=== PATIENT | female | born 1985 | race Caucasian/White ===

== ENCOUNTER 2020-12-27 22:14 | Emergency (ER) | payer OTHER, SELFPAY ==
--- NOTE | ~2020-12-27 | XR_ITS ---
XR chest 2V DATE: 12/27/2020 22:44 INDICATION: Fever, cough. Covid exposure. TECHNIQUE: PA and lateral views COMPARISON: 07/30/2014 CT pulmonary scan 08/03/2014 2 view chest FINDINGS: Mild cardiomegaly, stable since 08/03/2014 No hilar or mediastinal enlargement. No pleural effusion or pulmonary vascular congestion or pneumoth orax. There are mild patchy infiltrates and/atelectasis in both lower lung zones. Included skeletal structures are unremarkable.. IMPRESSION: Mild patchy infiltrate or atelectasis at the lung bases Reviewed, dictated and finalized at location A.
[2020-12-27 22:27] VITALS: BP 146/101; PULSE 126; RESP 18; TEMP 36.6; O2SAT 98
--- NOTE | 2020-12-27 22:31 | ECG_ITS ---
Measurements Intervals [place] Rate: 117 P: 11 KS: 153 QRS: 27 QRSD: 86 T: -18 QT: 341 QTc: 476 Interpretive Statements SINUS TACHYCARDIA VOLTAGE CRITERIA FOR LVH BORDERLINE ST-T WAVE ABNORMALITY- ANTEROLAT/INF LEADS ABNORMAL ECG Electronically Signed On 12-28-2020 6:31:56 CDT by Otoniel Flores D.O.
== END 2020-12-28 04:16 | disposition left against medical advice (07) ==
PROVIDERS: Emergency Provider Emergency Medicine; PCP Physician Assistant
DX: R51.9 Headache, unspecified (principal)
CPT/HCPCS: 71046; 93005; 99199

== ENCOUNTER 2023-09-18 02:05 | Day surgery (SDC) | payer OTHER, SELFPAY ==
--- NOTE | 2023-09-12 11:10 | PC.NURSE ---
Report to the Outpatient Waiting Room, entrance under the green pavilion located off [facility], at time _1200_ on date _[id number]_. Planned Procedure Time: _2pm_. Time changes happen often and if your time is changed the preop area will call you the afternoon before. - You and your visitor will be asked to self-screen and do not enter if you have any COVID symptoms. - A mask is optional within the hospital at this time. Patients may have clear liquids (water, carbonated beverages, clear teas, apple juice) until 3 hours prior to surgery with a maximum of 20 ounces. - No food from midnight until time of surgery Take the following medications with a SIP of water the morning of surgery: ___None DO NOT STOP ANY OF YOUR OTHER PRESCRIPTION MEDICATIONS PRIOR TO SURGERY ?EXCEPT THE FOLLOWING Medications to discontinue per physician ____None Date to take last dose Please no make-up, nail georgian, hairspray, perfume, deodorant, or body powder the day of surgery. No jewelry (including any body piercings) or valuables the day of surgery, leave them at home. Please take a shower or bath the night before, or the morning of, surgery with an antibacterial soap. Wear comfortable, loose fitting clothing. - Jewelry must be removed prior to entering the operating room. Rings and piercings that are not removed may be cut off. - The hospital will not accept responsibility for valuables. - Please leave all valuables, including medications, at home the day of surgery. If you are going home after surgery, a licensed local bulk driver must drive you home. - NO public transportation without another adult if you receive anesthesia. - We recommend that an adult stay with you for 24 hours following discharge. - We also recommend that you do not drive, make important decision, drink alcoholic beverages, or take any drugs that were not prescribed by your health care provider for at least 24 hours after your discharge time. Follow any additional instructions given to you from your surgeon. If you or anyone in your household have experienced Covid symptoms in the past week, please notify your surgeon or the nurse liaison at the phone number below for possible testing. Telephone instructions given to __Shelly____and asked if any additional questions and then verbalized understanding. Patient advised to call surgeon office or pre surgery nurse liaison [phone] if any additional questions.
[2023-09-18 11:59] VITALS: BP 140/97; PULSE 80; RESP 18; TEMP 36.1; O2SAT 100
[2023-09-18 12:14] VITALS: BMI 35.1
[2023-09-18] MEDS: LACTATED RINGERS 1,000 ML 30 ML IV CONT (12:30)
[2023-09-18] MEDS: ACETAMINOPHEN 500 MG TABLET 1000 MG PO (12:35)
[2023-09-18] MEDS: KETOROLAC 15 MG/ML VIAL (*BKC) IV PUSH (12:40)
--- NOTE | 2023-09-18 13:33 | WPDANESEPPF ---
Anes - Initial Pre Proc Eval Procedure: Operation Date: 09/18/23 14:00 Proposed Procedures p Diagnostic Laparoscopy - Leonel Boyd MD Date/Time: 09/18/23 13:33 Surgeon: Leonel Boyd MD Pre Op Diagnosis: Pelvic Pain Patient Data Age: 38 Gender: F Height: 1.68 m Weight: 98.7 kg Last Vital Signs Temp 96.9 F L 09/18/23 11:59 Pulse 80 09/18/23 11:59 Resp 18 09/18/23 11:59 BP 140/97 H 09/18/23 11:59 Pulse Ox 100 09/18/23 11:59 O2 Del Method Room Air 09/18/23 11:59 Allergies Allergy/AdvReac Type Severity Reaction Status Date / Time morphine AdvReac Intermediate Hives Verified 09/18/23 12:08 Home Medications Medication Instructions Recorded Confirmed Type No Home Medications 09/12/23 09/18/23 History Patient hx anesthesia problems: none Family hx anesthesia problems: none Results Review: All pre-operative results and documents have been reviewed as part of the pre-operative evaluation. [facility] Social History Social History Smoking status: Never smoker Living arrangements: with family Spiritual care concerns: No Anes - Eval Final PreProcedure Day of Procedure 09/18/23 13:33 Patient weight: obese Heart: regular rate and rhythm Lungs: clear to auscultation Airway: Mallampati scale class II Neurological: alert and oriented Last oral intake: >/= 8 hours ASA classification: II Emergent: no Anesthetic plan: proceed Anesthesia type and monitoring: general ETT and standard monitoring Results Review: All pre-operative results and documents have been reviewed as part of the pre-operative evaluation. Informed Consent: The patient's anesthetic plan and its attendant risks and benefits were discussed with the patient/family/POA. Questions were solicited and answers provided to the satisfaction of the patient/family/POA.
--- NOTE | 2023-09-18 14:41 | SUR.PREOP ---
1420 Pt made aware of surgery time delay. Warm blanket given, denies any other needs.
--- NOTE | 2023-09-18 15:33 | SUR.PREOP ---
PT INFORMED OF FURTHER SURGERY TIME DELAY
--- NOTE | 2023-09-18 20:08 | SUR.PREOP ---
1257 patient informed surgeon delayed and her procedure today is canceled and she will need to call the office to reschedule, understanding stated.
== END 2023-09-18 17:05 | disposition home or self-care (01) ==
PROVIDERS: Visit Provider Obstetrics & Gynecology
PROC: (CPT 49320; principal; 2023-09-18 14:00)
DX: R10.2 Pelvic and perineal pain (principal)
CPT/HCPCS: 99213; A9270; G0463; J1885; J7120

== ENCOUNTER 2023-09-24 02:31 | Day surgery (SDC) | payer OTHER, SELFPAY ==
[2023-09-20 16:02] VITALS: BMI 35.1
--- NOTE | 2023-09-20 16:06 | PC.NURSE ---
Report to the Outpatient Waiting Room, entrance under the green pavilion located off [facility], at time _0900_ on date _[id number]_. Planned Procedure Time: _1100_. Time changes happen often and if your time is changed the preop area will call you the afternoon before. - You and your visitor will be asked to self-screen and do not enter if you have any COVID symptoms. - A mask is optional within the hospital at this time. Patients may have clear liquids (water, carbonated beverages, clear teas, apple juice) until 3 hours prior to surgery with a maximum of 20 ounces. - No food from midnight until time of surgery Take the following medications with a SIP of water the morning of surgery: ____none DO NOT STOP ANY OF YOUR OTHER PRESCRIPTION MEDICATIONS PRIOR TO SURGERY ?EXCEPT THE FOLLOWING Medications to discontinue per physician none Date to take last dose Please no make-up, nail bruneian, hairspray, perfume, deodorant, or body powder the day of surgery. No jewelry (including any body piercings) or valuables the day of surgery, leave them at home. Please take a shower or bath the night before, or the morning of, surgery with an antibacterial soap. Wear comfortable, loose fitting clothing. - Jewelry must be removed prior to entering the operating room. Rings and piercings that are not removed may be cut off. - The hospital will not accept responsibility for valuables. - Please leave all valuables, including medications, at home the day of surgery. If you are going home after surgery, a licensed [place] driver must drive you home. - NO public transportation without another adult if you receive anesthesia. - We recommend that an adult stay with you for 24 hours following discharge. - We also recommend that you do not drive, make important decision, drink alcoholic beverages, or take any drugs that were not prescribed by your health care provider for at least 24 hours after your discharge time. Follow any additional instructions given to you from your surgeon. If you or anyone in your household have experienced Covid symptoms in the past week, please notify your surgeon or the nurse liaison at the phone number below for possible testing. Telephone instructions given to _Reginay__and asked if any additional questions and then verbalized understanding. Patient advised to call surgeon office or pre surgery nurse liaison [phone] if any additional questions.
[2023-09-24] VITALS (8 sets, daily range): BP systolic 115–147; BP diastolic 69–88; PULSE 76–113; RESP 12–18; TEMP 36.2–36.3; O2SAT 94–100
[2023-09-24] MEDS: ACETAMINOPHEN 500 MG TABLET 1000 MG PO (10:10)
[2023-09-24] MEDS: KETOROLAC 15 MG/ML VIAL (*BKC) IV PUSH (10:10)
--- NOTE | 2023-09-24 10:27 | PM.IMHP ---
H&P: HPI History of Present Illness Date/Time: 09/24/23 10:27 Chief Complaint: pelvic pain Narrative: 38-year-old female with pelvic pain and nonspecific pelvic mass. She is status post hysterectomy. We agreed to perform diagnostic laparoscopy. She understands procedure. Has been explained to her in detail. She understands risks. She understands injuries may occur that resulted hospitalization, more surgery, and severe illness. She understands risk of hemorrhage infection. She denies any nausea, vomiting, fever, chills. She denies any chest pain or shortness of breath. Review of Systems Review of Systems: All systems reviewed & are unremarkable except as noted in HPI and below Constitutional: Constitutional: Denies chills, Denies fatigue, Denies fever(s) and Denies weakness Eyes: Eyes: Denies blurry vision, Denies change in vision, Denies loss of peripheral vision, Denies loss of vision, Denies other visual disturbances and Denies eye pain ENT: Denies vertigo, Denies dizziness, Denies hearing loss, Denies mouth pain, Denies nasal obstruction, Denies neck mass and Denies neck pain Cardiovascular: Cardiovascular: Denies chest pain, Denies diaphoresis, Denies syncope, Denies leg edema and Denies dyspnea Respiratory: Respiratory: Denies chest congestion, Denies cough, Denies hemoptysis, Denies dyspnea and Denies wheezing Gastrointestinal: Gastrointestinal: Denies abdominal pain, Denies constipation, Denies diarrhea, Denies nausea and Denies vomiting Genitourinary: Genitourinary: Denies hematuria, Denies change in libido, Denies nocturia, Denies genital lesions, Denies flank pain and Denies urinary urgency Musculoskeletal: Musculoskeletal: Denies abnormal gait, Denies back pain, Denies myalgias, Denies arthralgias, Denies joint swelling, Denies muscle weakness and Denies neck pain Integumentary/Breasts: Skin/Breast: Denies swelling, Denies breast pain, Denies breast mass, Denies dry skin, Denies nipple discharge, Denies unusual bruising and Denies jaundice Neurologic: Denies Neuro-related abnormal movements, Denies Abnormal speech present, Denies abnormal gait, Denies behavioral changes, Denies confusion, Denies vertigo, Denies dizziness, Denies syncope, Denies loss of vision, Denies memory loss, Denies convulsions and Denies weakness Psychiatric: Psychiatric: Denies abnormal sleep pattern, Denies behavioral changes, Denies change in libido, Denies confusion, Denies depression, Denies anhedonia and Denies memory loss Endocrine: Endocrine: Reports no additional endocrine complaints, Denies change in libido and Denies fatigue Hematologic/Lymphatic: Hematologic/Lymphatic: Reports no additional hematologic/lymphatic complaints Allergic/Immunologic: Allergic/Immunologic: Reports no additional allergic/immunologic complaints and Denies wheezing PMFSH Social History Social History Smoking status: Never smoker Living arrangements: with family Spiritual care concerns: No Meds Home Medications and Allergies Home Medications Medication Instructions Recorded Confirmed Type No Home Medications 09/12/23 09/20/23 History Allergies Allergy/AdvReac Type Severity Reaction Status Date / Time morphine AdvReac Intermediate Hives Verified 09/20/23 16:03 Exam Const: General: cooperative, healthy appearing, comfortable and no acute distress Orientation/consciousness: oriented to person, oriented to place and oriented to time HENMT: Head: normal to inspection Ears: external ears normal Face/Nose/Sinus: Normal external nose present and normal facial exam Face and sinus: normal facial exam Eyes: General: appearance normal, both eyes and all related structures Neck: Neck: normal visual inspection, trachea midline and supple Resp: Auscultation: clear to auscultation bilaterally, no crackles, no rales, no rhonchi and no wheezes Cardio: Rate: regular rate Rhythm: regular rhythm Heart sounds: no click, no murmurs an
--- NOTE | 2023-09-24 10:30 | WPDHPUPDATE1 ---
History and Physical Update Update Date/Time: 09/24/23 10:30 History and Physical has been reviewed, including an updated exam of the patient. There are NO changes in the patient's condition. Risks, benefits, and alternatives have been discussed and questions answered. Patient agrees to proceed with procedure.
[2023-09-24] MEDS: LACTATED RINGERS 1,000 ML 30 ML IV CONT (10:31)
--- NOTE | 2023-09-24 10:45 | P.PNAN_ITS ---
Anes - Initial Pre Proc Eval Procedure: Operation Date: 09/24/23 11:30 Proposed Procedures p Diagnostic Laparoscopy - Cl Boyd MD Date/Time: 09/24/23 10:45 Surgeon: Cl Boyd MD Pre Op Diagnosis: pelvic pain Patient Data Age: 38 Gender: F Height: 1.68 m Weight: 95.5 kg Last Vital Signs Temp 97.1 F L 09/24/23 10:26 Pulse 76 09/24/23 10:26 Resp 14 09/24/23 10:26 BP 123/88 09/24/23 10:26 Pulse Ox 99 09/24/23 10:26 O2 Del Method Room Air 09/24/23 10:26 Allergies Allergy/AdvReac Type Severity Reaction Status Date / Time morphine AdvReac Intermediate Hives Verified 09/24/23 10:33 Home Medications Medication Instructions Recorded Confirmed Type No Home Medications 09/12/23 09/20/23 History Patient hx anesthesia problems: none Family hx anesthesia problems: none Results Review: All pre-operative results and documents have been reviewed as part of the pre- operative evaluation. PMFSH Social History Social History Smoking status: Never smoker Living arrangements: with family Spiritual care concerns: No Anes - Eval Final PreProcedure Day of Procedure 09/24/23 10:45 Patient weight: obese Heart: regular rate and rhythm Lungs: clear to auscultation Airway: Mallampati scale class II Neurological: alert and oriented Last oral intake: >/= 8 hours ASA classification: II Emergent: no Anesthetic plan: proceed Anesthesia type and monitoring: general ETT and standard monitoring Results Review: All pre-operative results and documents have been reviewed as part of the pre- operative evaluation. Informed Consent: The patient's anesthetic plan and its attendant risks and benefits were discussed with the patient/family/POA. Questions were solicited and answers provided to the satisfaction of the patient/family/POA.
--- NOTE | 2023-09-24 12:15 | W.PM.PROC2 ---
Procedure Note - Detailed Date of Procedure 09/24/23 Pre-op Diagnosis pelvic pain, Post-op Diagnosis Same ( pelvic adhesions) Procedure Performed Diagnostic laparoscopy, right oophorectomy Surgeon Cl Boyd MD Anesthesia General Indications Pelvic pain Findings pronounced vascularity of the right ovary, irregular contour were, adhesions around the ovary and throughout the pelvis. Densely scarred pelvic mesh. Absent left ovary. Absent uterus and fallopian tubes, densely scarred vaginal Description of Procedure The patient was taken to the operating room. She was prepped and draped in the dorsal lithotomy position after induction general anesthesia. A 5 mm incision was made with a scalpel on the abdominal skin in the left upper quadrant of the abdomen. A 5 mm trocar was inserted into the intra-abdominal cavity under direct visualization the scope. In the same fashion a 11 mm left lower quadrant trocar was inserted and a 5 mm infraumbilical trocar was inserted. Sharp and blunt dissection were used along with cautery to separate the ovary from the lateral right pelvic sidewall. The ureter was dissected down the right side. the ovaries placed in endobag and taken out the left lower quadrant trocar site The pelvis was irrigated. The pneumoperitoneum was reduced. The trocars were removed. Skin was closed with subcuticular 4 micro. The patient's incisions were covered with Dermabond. She was taken recovery room in stable condition. Sponge lap and needle counts were correct x2. Complications No immediate complications Condition Stable Disposition Same day
[2023-09-24] MEDS: fentaNYL CITRATE INJ (*CRX) 100 MCG/2 ML VIAL 25 MCG IV PUSH ×8 (12:25→12:56)
[2023-09-24] MEDS: ONDANSETRON INJ 4 MG/2 ML VIAL IV PUSH (12:34)
[2023-09-24] MEDS: oxyCODONE HCL (*CRX) 5 MG TAB IR PO (13:30)
== END 2023-09-24 14:18 | disposition home or self-care (01) ==
PROVIDERS: Visit Provider Obstetrics & Gynecology
PROC: (CPT 49320; principal; 2023-09-24 11:30)
DX: N83.01 Follicular cyst of right ovary (principal); N73.6 Female pelvic peritoneal adhesions (postinfective); Z90.710 Acquired absence of both cervix and uterus; E66.9 Obesity, unspecified; Z68.34 Body mass index [BMI] 34.0-34.9, adult
CPT/HCPCS: 58661; 88305; A9270; J1100; J1885; J2250; J2405; J2704; J3010; J7120

== ENCOUNTER 2023-10-07 13:40 | Emergency (ER) | payer OTHER, SELFPAY ==
--- NOTE | ~2023-10-07 | XR_ITS ---
XR foot RT 2V 10/07/2023 15:29 INDICATION: Right foot pain PROCEDURE: 2 views right foot COMPARISON: 03/01/2012 FINDINGS: Fracture, dislocation or subluxation is not identified. Lisfranc joint intact. The soft tis sues appear within normal limits. No foreign bodies are identified. There are degenerative calcaneal enthesophytes. IMPRESSION: 1: NO ACUTE BONE OR JOINT ABNORMALITY IDENTIFIED. Reviewed, dictated and finalized at location A.
--- NOTE | ~2023-10-07 | XR_ITS ---
XR ankle RT min 3V 10/07/2023 15:29 INDICATION: Right ankle pain and swelling after twisting injury PROCEDURE: 4 views right ankle COMPARISON: 03/01/2012 FINDINGS: Fracture, dislocation or subluxation is not identified. Mild lateral soft tissue swelling. No foreign bodies are identified. Prominent degenerative calcaneal enthesophytes. IMPRESSION: 1: NO ACUTE BONE OR JOINT ABNORMALITY IDENTIFIED. Reviewed, dictated and finalized at location A.
[2023-10-07 14:01] VITALS: PULSE 92; RESP 20; TEMP 36.7; O2SAT 99
--- NOTE | 2023-10-07 15:24 | ED.GENADULT ---
[facility] - General Adult General Chief complaint: Extremity Injury, Lower Stated complaint: R ankle injury Time Seen by Provider: 10/07/23 14:13 Source: patient Mode of arrival: ambulatory Limitations: no limitations History of Present Illness HPI narrative: This is a 38-year-old female who presents to the ED with chief complaint of right ankle pain and swelling after injury that occurred yesterday. Patient reports that she was going down a slip and slide when it felt like her foot got caught underneath. Reports a caused hyper plantar flexion. She had immediate pain and difficulty with weight-bearing following the injury. Denies numbness or weakness. Denies any further sites of pain Related Data Allergies Allergy/AdvReac Type Severity Reaction Status Date / Time morphine AdvReac Intermediate Hives Verified 10/07/23 14:05 Review of Systems Review of Systems: All systems as dictated in [facility] Social History Social History Smoking status: Never smoker Living arrangements: with family Spiritual care concerns: No Exam Narrative: GENERAL: Well-appearing, well-nourished, and in no acute distress. MSK: RLE: Mild tenderness throughout the ankle joint. Mild swelling. No bruising or deformity. Neurovascularly intact distally LLE: Benign SKIN: Warm, dry, no rash. NEURO: Alert and oriented x3. No focal deficits. PSYCH: Normal mood and affect. Course Vital Signs Vital signs: Vital Signs Temperature 98.1 F 10/07/23 14:01 Pulse Rate 92 10/07/23 14:01 Respiratory Rate 20 10/07/23 14:01 Pulse Oximetry 99 10/07/23 14:01 Oxygen Delivery Room Air 10/07/23 14:01 Temperature 97.6 F 10/07/23 16:14 Pulse Rate 78 10/07/23 16:14 Respiratory Rate 18 10/07/23 16:14 Blood Pressure 148/67 H 10/07/23 16:14 Pulse Oximetry 100 10/07/23 16:14 Oxygen Delivery Room Air 10/07/23 14:01 Medical Decision Making [facility] Narrative Medical decision making narrative: This is a 30-year-old female who presents to the ED with chief complaint of right ankle and foot injury that occurred yesterday. Vitals are normal. Exam shows mildly swollen right ankle. X-rays of the right ankle and foot are negative for any acute fractures. Symptoms and presentation consistent with ankle sprain. Lyndon wrap and crutches given here. Pt will be discharged in stable condition. Return precautions given and supportive measures discussed. Pt is understanding and agreeable with plan for discharge and follow-up with PCP. Vital Signs Vital Signs: Vital Signs Temperature 98.1 F 10/07/23 14:01 Pulse Rate 92 10/07/23 14:01 Respiratory Rate 20 10/07/23 14:01 Pulse Oximetry 99 10/07/23 14:01 Oxygen Delivery Room Air 10/07/23 14:01 Temperature 97.6 F 10/07/23 16:14 Pulse Rate 78 10/07/23 16:14 Respiratory Rate 18 10/07/23 16:14 Blood Pressure 148/67 H 10/07/23 16:14 Pulse Oximetry 100 10/07/23 16:14 Oxygen Delivery Room Air 10/07/23 14:01 Discharge Plan Discharge Clinical Impression: Ankle sprain and strain Patient Disposition: Home, Self-Care Condition: Stable Instructions: Antibiotic Form Additional Instructions: Exam and imaging today are reassuring overall. This is probably an ankle sprain. Continue with Lyndon wrap and crutches. Progress from nonweightbearing to weight-bearing as tolerated Follow-up with your doctor. If you have any new or worsening symptoms please return to the ER for further evaluation. Prescriptions: No Action oxycodone-acetaminophen 5-325 mg tablet 1 tablet PO Q4H PRN (Reason: pain) Qty: 14 0RF ondansetron 8 mg tablet,disintegrating 8 mg PO Q8H Qty: 30 3RF estradiol 1 mg tablet 1 mg PO DAILY Qty: 30 12RF Follow-up/Referrals: UNKNOWN,DOCTOR [Primary Care Provider] - Time of Disposition: 15:54
[2023-10-07] MEDS: KETOROLAC 30 MG/ML VIAL (*BKC) IM (16:02)
[2023-10-07 16:14] VITALS: BP 148/67; PULSE 78; RESP 18; TEMP 36.4; O2SAT 100
== END 2023-10-07 16:20 | disposition home or self-care (01) ==
PROVIDERS: Emergency Provider Physician Assistant
DX: S93.401A Sprain of unspecified ligament of right ankle, initial encounter (principal); S96.911A Strain of unspecified muscle and tendon at ankle and foot level, right foot, initial encounter; X50.9XXA Other and unspecified overexertion or strenuous movements or postures, initial encounter
CPT/HCPCS: 73610; 73620; 96372; 99283; J1885